=== PATIENT | female | born 1990 | race African-American/Black ===

== ENCOUNTER 2021-01-24 13:06 | Outpatient (CLI) | payer BC, SELFPAY ==
--- NOTE | ~2021-01-24 | MR_ITS ---
EXAMINATION: MR brain/brain stem wo/w con DATE: 01/24/2021 14:30 INDICATION: New daily persistent headache. TECHNIQUE: Magnetic resonance imaging (MRI) of the brain and brainstem was performed without and with 12 mL MultiHance intravenous contrast. Sequences included sagittal and axial T1-weighted FSE, axial diffusion-weighted FS EPI, axial T2*-weighted GRE, axial T2-weighted FLAIR Propeller, and axial T2-we ighted Propeller. Postcontrast sequences included axial and coronal T1-weighted FSE. Apparent diffusi on coefficient (ADC) maps were created. COMPARISON: None. FINDINGS: There is no intracranial hemorrhage, acute infarction, or abnormal intracranial mass lesion . The ventricles are normal in size. There is mild mucosal thickening in the ethmoid sinuses. The orb its are normal. The mastoid air cells are normal. IMPRESSION: 1. Normal brain. Reviewed, dictated and finalized at location [facility]. IMPRESSION: 1. Normal brain.
[2021-01-24 14:06] LABS: Estimated Glomerular Filt Rate > 60
== END 2021-01-24 13:07 | disposition home or self-care (01) ==
LOC: ANHIMG 13:19
DX: G44.52 New daily persistent headache (NDPH) (principal); H53.9 Unspecified visual disturbance
CPT/HCPCS: 70553; A9577

== ENCOUNTER 2021-01-26 13:30 | Outpatient (CLI) | payer BC, SELFPAY ==
--- NOTE | ~2021-01-26 | CT_ITS ---
EXAMINATION: CT abdomen pelvis w con DATE: 01/26/2021 13:57 INDICATION: Lower abdominal pain. TECHNIQUE: Computed tomography (CT) of the abdomen and pelvis was performed with 100 mL Omnipaque-350 intravenous contrast. Automated exposure control and iterative reconstruction technique were employe d. The dose-length product was 220.02 mGy-cm. COMPARISON: None FINDINGS: Lung bases are clear. Heart size is normal. No pericardial or pleural effusion. Liver, decompressed g allbladder, spleen, pancreas, bilateral adrenal glands and kidneys are normal. Bowels including the a ppendix are normal. Tampon within the vaginal vault. Couple small enhancing densities within the lowe r attenuation endometrial complex of the anteverted uterus which measures 8 mm in thickness. Bladder is normal. Minimal likely physiologic free fluid in the cul-de-sac. No abscess or free intraperitonea l gas. No pathologically enlarged abdominal or pelvic lymphadenopathy. Bones are unremarkable. IMPRESSION: 1. A couple small foci of enhancement within the 8 mm thick endometrial complex. This could be relate d to phase of menstrual cycle although differential would include early intrauterine and wo uld correlate with beta hCG level. 2. No other acute intra-abdominal/pelvic process. Reviewed, dictated and finalized at location [facility]. IMPRESSION: 1. A couple small foci of enhancement within the 8 mm thick endometrial complex . This could be related to phase of menstrual cycle although differential would include early intrauterine and would correlate with beta hCG level. 2. No other acute intra-abdominal/pelvic process.
== END 2021-01-26 13:31 | disposition home or self-care (01) ==
LOC: ANHIMG 13:31
DX: R10.30 Lower abdominal pain, unspecified (principal); R93.89 Abnormal findings on diagnostic imaging of other specified body structures
CPT/HCPCS: 74177; Q9967

== ENCOUNTER 2021-10-10 08:38 | Outpatient (CLI) | payer BC, SELFPAY ==
--- NOTE | ~2021-10-10 | US_ITS ---
US soft tissue head and neck DATE: 10/10/2021 09:34 INDICATION: Enlarged lymph nodes, dysphagia, neck pain TECHNIQUE: Real-time imaging and Doppler analysis COMPARISON: None FINDINGS: Approximately 5 x 7.5 x 8.5 mm mm septated cyst with through transmission and posterior enh ancement at the right lobe of the thyroid gland. 5 x 6 x 7.4 mm heterogeneous hypoechoic nodule of the left lobe of the thyroid gland. 4.7 x 6.7 x 9.2 mm left thyroid lobe cyst. Additional small cyst of each lobe of the thyroid gland is noted. No apparent cervical mass lesion or lymphadenopathy is appreciated. Consider CT neck examination for further evaluation IMPRESSION: No definite sonographic etiology for patient complains noted; CT neck examination is victoria mmended. Reviewed, dictated and finalized at [facility]. Reviewed, dictated and finalized at location [facility]. IMPRESSION: No definite sonographic etiology for patient complains noted; CT ne ck examination is recommended.
== END 2021-10-10 08:39 | disposition home or self-care (01) ==
PROVIDERS: PCP Internal Medicine; Visit Provider Internal Medicine
DX: R59.9 Enlarged lymph nodes, unspecified (principal); R13.10 Dysphagia, unspecified; M54.2 Cervicalgia
CPT/HCPCS: 76536